=== PATIENT | female | born 1970 | race Caucasian/White ===

== ENCOUNTER 2016-11-16 05:51 | Emergency (ER) | payer MEDICAID ==
[2016-11-16 06:16] LABS: Urine Bilirubin Negative (NEGATIVE); Urine Blood 250 /ul (NEGATIVE); Urine Ketone Negative (NEGATIVE); Urine Nitrite Negative (NEGATIVE); Urine Protein 100 mg/dL (NEGATIVE); Urine Specific Gravity 1.025 SP.GR. (1.005-1.010); Urine Urobilinogen Normal (NORMAL)
[2016-11-16 06:20] LABS: Urine Appearance Slightly Cloudy; Urine Bacteria 3+; Urine Color Amber; Urine RBC 25-50 /hpf (0-5); Urine Renal Epithelial Cell Few - 1+ /hpf
--- NOTE | 2016-11-16 06:37 | ERNOTE ---
ER Female HPI Date of Service: 11/16/16 Stated Complaint: uti Presenting Symptoms: pelvic pain Time Seen by Provider: 11/16/16 06:30 Source: patient Immunizations: IMMUNIZATION HX Immunizations Up to Date No History of Influenza Vaccine No Hx Pneumococcal Vaccination No Allergies/Adverse Reactions: Allergies No Known Allergies Allergy (Unverified 03/12/12 16:47) Home Medications: HOME MEDICATIONS Zolpidem Tartrate [Ambien] 10 mg PO HS 03/12/12 [Last Taken 03/16/12] Alprazolam [Xanax Xr] 0.5 mg PO HS 11/16/16 [Last Taken Unknown] Ciprofloxacin HCl [Cipro] 500 mg PO BID #20 tab 11/16/16 [Last Taken Unknown] Venlafaxine HCl [Effexor Xr] 150 mg PO DAILY 11/16/16 [Last Taken Unknown] - History of Present Illness 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 Timing: Present: constant, getting worse Quality: Present: moderate, aching, fullness Onset Location: Present: urethral Radiation: Present: none Activities at Onset: Present: none Prior Abdominal Problems: Present: none Sexual Hercules History: Present: single partner Modifying Factors - (Improves): Present: analgesics Associated Symptoms: Present: dysuria, urinary frequency, polyuria Review of Systems - Review of Systems Constitutional: Present: See HPI EYE: Present: no symptoms reported ENT: Present: no symptoms reported Respiratory: Present: no symptoms reported Cardiology: Present: no symptoms reported Gastrointestinal/Abdominal: Present: no symptoms reported Genitourinary: Present: See HPI, frequency, dysuria Musculoskeletal: Present: no symptoms reported Skin: Present: no symptoms reported Neurological: Present: See HPI, emotional problems Endocrine: Present: no symptoms reported Hematologic/Lymphatic: Present: no symptoms reported Psych: Present: no symptoms reported All Other Systems: All systems neg except as marked - Patient's Past Medical History Patient History - Medical: Anxiety, Depression Patient History - Cardiac/Respiratory: No pertinent hx Patient History - Cancer: No Hx of Cancer Patient History - Surgical Procedures: Appendectomy, , T & A Patient History - Other: None LMP (females 10-50): last week - Family History Family History:: no untoward family reactions to anesthesia, no family history of clotting disorders - Social History Living Situations: spouse Abuse History: No History of abuse Psych History: No pertinent hx Does anyone smoke in the home?: No Smoking Status: Never smoker Have you smoked in the past 12 months: No Do you dip or chew tobacco: No Patient requests Smoking Cessation Consult: No Initiate information on Smoking Cessation: No Alcohol Use: occasionally Drug Use: none - Immunizations Immunizations Up to Date: No Hx Pneumococcal Vaccination: No History of Influenza Vaccine: No Physical Exam - Physical Exam General Appearance: Present: mild distress Head Exam: Present: normal inspection, no evidence of injury Eye Exam: Normal inspection: bilateral, PERRL: bilateral, EOMI: bilateral Ears, Nose, Throat: Present: normal ENT inspection Neck: Present: normal inspection, nontender Respiratory: Present: no respiratory distress, normal breath sounds, no accessory muscle use, chest nontender, lungs clear Cardiovascular/Chest: Present: regular rate, rhythm, no murmur, normal peripheral pulses Peripheral Pulses: N=norm/S=strong/W=weak/B=bound/A=absent: Carotid (R): Normal , Carotid (L): Normal, Radial (R): Normal, Radial (L): Normal, Femoral (R): Normal, Femoral (L): Normal, Dorsalis-pedis (R): Normal, Dorsalis-pedis (L): Normal Gastrointestinal/Abdominal: Present: normal bowel sounds, nontender, nondistended, soft, no organomegaly Back Exam: Present: normal inspection, normal range of motion, no CVA tenderness , no vertebral tenderness Extremity Exam: Present: normal inspection, normal range of motion, no edema Neurological Exam: Present: alert, oriented, normal mood/affect, no motor/ sensory deficits DTR: N=norm/NB=norm/brisk/A=abs/DD=dull/dimin/HC=hyperactive: Bicep (R): Normal , Bicep (L): Normal, Tricep (R): Normal, Tricep (L): Normal, Knee (R): Normal, Knee (L): Normal Skin Exam: Present: normal color, warm/dry Lymphatic Exam: Present: no adenopathy ED Progress - Results and Orders Patient's Lab Results:: I have reviewed the patient's lab results. - Vital Signs Vital Signs: Vital Signs 11/16/16 06:02 Temperature 36.3 C L Pulse Rate 77 Respiratory 16 Rate Blood Pressure 157/88 O2 Sat by Pulse 99 Oximetry - Progress/Reassessment Chief Complaint: Genitourinary Problem Progress:: Unchanged - Transfer of Care Expected Disposition: Discharge Departure Clinical Impression: Urinary tract bacterial infections - Departure Disposition: Home self-care Condition: Fair Instructions: Urinary Tract Infection, Adult, [id number] Prescriptions: Ciprofloxacin HCl [Cipro] 500 mg PO BID #20 tab
[2016-11-16 06:49] VITALS: BP 138/84
== END 2016-11-16 06:43 | disposition home or self-care (01) ==
LOC: ER 05:51
DX: N39.0 Urinary tract infection, site not specified (principal); B96.89 Other specified bacterial agents as the cause of diseases classified elsewhere; F41.8 Other specified anxiety disorders